=== PATIENT | female | born 1955 | race African-American/Black ===

== ENCOUNTER 2016-11-25 10:32 | Day surgery (SDC) | payer OTHER ==
[2016-11-24 12:20] VITALS: BMI 43.5
[2016-11-25] MEDS ORDERED: PROPOFOL 20 ML ONE ×2 (11:20)
[2016-11-25] MEDS ORDERED: LIDOCAINE HCL/PF 2% SDV 5ML VIAL ONE (11:20)
[2016-11-25 13:04] VITALS: TEMP 97.6
[2016-11-25 13:48] VITALS: BP 138/88; PULSE 73
--- NOTE | 2016-11-26 12:45 | PATH ---
Surgical Pathology Report Patient Name: CLAUDE GUERRERO [facility]. Rec. #: [id number] /Age/Gender: 1955 (Age: 61) / F Account: [id number] Location: U-ENDOSCOPY Taken: 11/25/2016 Received: 11/25/2016 Reported: 11/26/2016 Physicians: Rick Duran D.O. Specimen(s) Received A: POLYP TRANSVERSE B: BX POLYP TRANSVERSE Clinical History Positive FIT Colon polyps, hemorrhoids, diverticulosis Final Diagnosis A. COLON, TRANSVERSE, POLYP, POLYPECTOMY: TUBULAR ADENOMA. B. COLON, TRANSVERSE, POLYP, BIOPSY: POLYPOID FRAGMENT OF COLONIC MUCOSA WITH SURFACE HYPERPLASTIC CHANGE. Electronically Signed Black Hoffman M.D. Gross Description A. Received in formalin, labeled "polyp transverse" is a bernal, irregular portion of soft tissue measuring 0.4 cm in greatest dimension. The specimen is submitted in toto in one cassette. B. Received in formalin, labeled "biopsy polyp transverse" is a bernal, irregular portion of soft tissue measuring 0.3 cm in greatest dimension. The specimen is submitted in toto in one cassette. DL/11/25/2016 saudi11/25/2016
== END 2016-11-25 13:56 | disposition home or self-care (01) ==
LOC: JASU-ENDO 10:32
PROVIDERS: ATTEND Internal Medicine Gastroenterology
PROC: 0DBL8ZX Excision of Transverse Colon, Via Natural or Artificial Opening Endoscopic, Diagnostic (ICD-10-PCS; principal; 2016-11-25 11:30)
DX: K92.1 Melena (principal); K57.30 Diverticulosis of large intestine without perforation or abscess without bleeding; D12.3 Benign neoplasm of transverse colon; K64.8 Other hemorrhoids
CPT/HCPCS: 88305-TC

== ENCOUNTER 2020-07-01 05:11 | Day surgery (SDC) | payer OTHER ==
[2020-06-26 12:36] VITALS: BMI 48.7
[2020-07-01] MEDS ORDERED: ONDANSETRON 4 MG/2 ML VIAL ONE (11:03)
[2020-07-01 11:32] VITALS: TEMP 98.2
[2020-07-01 12:25] VITALS: BP 154/79; PULSE 83
== END 2020-07-01 12:20 | disposition home or self-care (01) ==
LOC: JASU-ENDO 05:11
PROVIDERS: ATTEND Internal Medicine Gastroenterology
PROC: 0DB68ZX Excision of Stomach, Via Natural or Artificial Opening Endoscopic, Diagnostic (ICD-10-PCS; principal; 2020-07-01 10:15)
DX: Z01.818 Encounter for other preprocedural examination (principal); E66.01 Morbid (severe) obesity due to excess calories; E11.9 Type 2 diabetes mellitus without complications; I10 Essential (primary) hypertension; G47.30 Sleep apnea, unspecified; Z79.84 Long term (current) use of oral hypoglycemic drugs; Z68.42 Body mass index [BMI] 45.0-49.9, adult
CPT/HCPCS: 82962; 88305-TC; 88342-TC

== ENCOUNTER 2021-12-15 09:27 | Day surgery (SDC) | payer OTHER ==
[2021-12-15] MEDS ORDERED: MIDAZOLAM HCL 2 MG/2 ML SINGLE DOSE VIAL ONE (09:33)
[2021-12-15] MEDS ORDERED: TROPICAMIDE 1% OPHTH SOLN 15 ML BOTTLE ONE (09:47)
[2021-12-15] MEDS ORDERED: OFLOXACIN 0.3% OPHTHALMIC SOLUTION 5 ML BOTTLE ONE (09:47)
[2021-12-15] MEDS ORDERED: CYCLOPENTOLATE HCL 1% OPHTH SOLN 2 ML BOTTLE ONE (09:47)
[2021-12-15] MEDS ORDERED: PHENYLEPHRINE 2.5% OPHTH SOLN 15 ML BOTTLE ONE (09:47)
[2021-12-15] MEDS ORDERED: KETOROLAC TROMETHAMINE 0.5% EYE DROP 1 DROP DROPS ONE (09:47)
[2021-12-15 10:08] VITALS: BMI 45.1
[2021-12-15] MEDS: OFLOXACIN 0.3% OPHTHALMIC SOLUTION 5 ML BOTTLE OS SCH ×3 (10:10→10:20)
[2021-12-15] MEDS: PHENYLEPHRINE 2.5% OPHTH SOLN 15 ML BOTTLE OS SCH ×3 (10:10→10:20)
[2021-12-15] MEDS: CYCLOPENTOLATE HCL 1% OPHTH SOLN 2 ML BOTTLE OS SCH ×3 (10:10→10:20)
[2021-12-15] MEDS: TROPICAMIDE 1% OPHTH SOLN 15 ML BOTTLE OS SCH ×3 (10:10→10:20)
[2021-12-15] MEDS: KETOROLAC TROMETHAMINE 0.5% EYE DROP 1 DROP DROPS OS SCH ×3 (10:10→10:20)
[2021-12-15] MEDS ORDERED: BACITRACIN/POLYMYXIN OPH OINT 3.5 GM TUBE ONE (10:19)
[2021-12-15] MEDS ORDERED: TETRACAINE 0.5% OPHTH SOLN 2 ML BOTTLE ONE (10:19)
[2021-12-15] MEDS ORDERED: EPI-SHUGARCAINE (EPINEPHRINE 0.025% & LIDOCAINE-PF 0.75%) 4ML ONE (10:19)
[2021-12-15] MEDS ORDERED: NEO/POLYMYX B SULF/DEXAMETH OPHTHALMIC 5ML BOTTLE ONE (10:19)
[2021-12-15] MEDS ORDERED: POVIDONE-IODINE 5% OPHTHALMIC PREP 30 ML SOLUTION ONE (10:19)
[2021-12-15] MEDS ORDERED: BETAXOLOL HCL 0.25% OPHTHALMIC 10 ML DROPSBTL ONE (10:19)
[2021-12-15] MEDS ORDERED: ACETYLCHOLINE 1:100 INTRA-OCUL 20 MG/2 ML KIT ONE (10:19)
[2021-12-15] MEDS ORDERED: ACETAMINOPHEN 325 MG TABLET (FP) PO PRN (11:56)
[2021-12-15 12:04] VITALS: TEMP 98
[2021-12-15 12:37] VITALS: BP 112/66; PULSE 79
== END 2021-12-15 12:40 | disposition home or self-care (01) ==
LOC: FASU 09:27
PROVIDERS: ATTEND Ophthalmology
PROC: 08RK3JZ Replacement of Left Lens with Synthetic Substitute, Percutaneous Approach (ICD-10-PCS; principal; 2021-12-15 11:27)
DX: H25.89 Other age-related cataract (principal)
CPT/HCPCS: 66984; V2632; 82962

== ENCOUNTER 2021-12-22 09:39 | Day surgery (SDC) | payer OTHER ==
[2021-12-22] MEDS ORDERED: PHENYLEPHRINE 2.5% OPHTH SOLN 15 ML BOTTLE ONE (09:57)
[2021-12-22] MEDS ORDERED: TROPICAMIDE 1% OPHTH SOLN 15 ML BOTTLE ONE (09:57)
[2021-12-22] MEDS ORDERED: CYCLOPENTOLATE HCL 1% OPHTH SOLN 2 ML BOTTLE ONE (09:57)
[2021-12-22] MEDS ORDERED: KETOROLAC TROMETHAMINE 0.5% EYE DROP 1 DROP DROPS ONE (09:57)
[2021-12-22] MEDS ORDERED: OFLOXACIN 0.3% OPHTHALMIC SOLUTION 5 ML BOTTLE ONE (09:57)
[2021-12-22] MEDS: OFLOXACIN 0.3% OPHTHALMIC SOLUTION 5 ML BOTTLE OD SCH ×3 (10:05→10:15)
[2021-12-22] MEDS: KETOROLAC TROMETHAMINE 0.5% EYE DROP 1 DROP DROPS OD SCH ×3 (10:05→10:15)
[2021-12-22] MEDS: CYCLOPENTOLATE HCL 1% OPHTH SOLN 2 ML BOTTLE OD SCH ×3 (10:05→10:15)
[2021-12-22] MEDS: TROPICAMIDE 1% OPHTH SOLN 15 ML BOTTLE OD SCH ×3 (10:05→10:15)
[2021-12-22] MEDS: PHENYLEPHRINE 2.5% OPHTH SOLN 15 ML BOTTLE OD SCH ×3 (10:05→10:15)
[2021-12-22 10:09] VITALS: BMI 45.1
[2021-12-22] MEDS ORDERED: EPI-SHUGARCAINE (EPINEPHRINE 0.025% & LIDOCAINE-PF 0.75%) 4ML ONE (10:12)
[2021-12-22] MEDS ORDERED: TETRACAINE 0.5% OPHTH SOLN 2 ML BOTTLE ONE (10:12)
[2021-12-22] MEDS ORDERED: BETAXOLOL HCL 0.25% OPHTHALMIC 10 ML DROPSBTL ONE (10:12)
[2021-12-22] MEDS ORDERED: NEO/POLYMYX B SULF/DEXAMETH OPHTHALMIC 5ML BOTTLE ONE (10:12)
[2021-12-22] MEDS ORDERED: BACITRACIN/POLYMYXIN OPH OINT 3.5 GM TUBE ONE (10:12)
[2021-12-22] MEDS ORDERED: POVIDONE-IODINE 5% OPHTHALMIC PREP 30 ML SOLUTION ONE (10:12)
[2021-12-22] MEDS ORDERED: MIDAZOLAM HCL 2 MG/2 ML SINGLE DOSE VIAL ONE ×2 (11:08→11:23)
[2021-12-22] MEDS ORDERED: ACETAMINOPHEN 325 MG TABLET (FP) PO PRN (11:52)
[2021-12-22 12:03] VITALS: TEMP 97.8
[2021-12-22] MEDS ORDERED: ACETAMINOPHEN 500 MG TABLET (FP) ONE (12:09)
[2021-12-22 12:20] VITALS: PULSE 84
[2021-12-22 12:47] VITALS: BP 122/82
== END 2021-12-22 12:45 | disposition home or self-care (01) ==
LOC: FASU 09:39
PROVIDERS: ATTEND Ophthalmology
PROC: 08RJ3JZ Replacement of Right Lens with Synthetic Substitute, Percutaneous Approach (ICD-10-PCS; principal; 2021-12-22 11:24)
DX: H26.9 Unspecified cataract (principal)
CPT/HCPCS: 66984; V2632; 82962